=== PATIENT | female | born 1945 | race Caucasian/White ===

== ENCOUNTER 2021-05-29 06:36 | Day surgery (SDC) | payer MEDICARE ==
[2021-05-29] MEDS ORDERED: Sodium Chloride 0.9% 10 ML Syringe FLUSH PRN (07:00)
== END 2021-05-29 08:39 | disposition home or self-care (01) ==
LOC: JP.SDS 06:36
PROVIDERS: ATTEND Ophthalmology
DX: H25.12 Age-related nuclear cataract, left eye (principal)

== ENCOUNTER 2021-07-03 07:19 | Day surgery (SDC) | payer MEDICARE ==
[2021-07-03] MEDS: Sodium Chloride 0.9% 10 ML Syringe FLUSH PRN (07:59)
[2021-07-03] MEDS ORDERED: fentaNYL 100 MCG/2 ML SDV ONE (08:17)
== END 2021-07-03 09:30 | disposition home or self-care (01) ==
LOC: JP.SDS 07:19
PROVIDERS: ATTEND Ophthalmology
DX: E11.36 Type 2 diabetes mellitus with diabetic cataract (principal); I48.91 Unspecified atrial fibrillation; H25.11 Age-related nuclear cataract, right eye; I10 Essential (primary) hypertension; E78.5 Hyperlipidemia, unspecified
CPT/HCPCS: J3010; J3490; V2632

== ENCOUNTER 2022-09-15 07:51 | Emergency (ER) | payer MEDICARE | END 2022-09-15 10:22 | disposition home or self-care (01) | LOC: JP.ED 07:51 | DX: S93.402A Sprain of unspecified ligament of left ankle, initial encounter (principal); S80.02XA Contusion of left knee, initial encounter; E78.00 Pure hypercholesterolemia, unspecified; I10 Essential (primary) hypertension; E11.9 Type 2 diabetes mellitus without complications; E03.9 Hypothyroidism, unspecified; E66.9 Obesity, unspecified; Z68.25 Body mass index [BMI] 25.0-25.9, adult; Z88.0 Allergy status to penicillin; Z88.5 Allergy status to narcotic agent; Z88.8 Allergy status to other drugs, medicaments and biological substances; Z79.899 Other long term (current) drug therapy; Z79.01 Long term (current) use of anticoagulants; W18.30XA Fall on same level, unspecified, initial encounter | CPT/HCPCS: 73502-26-LT; 73502-LT; 73562-26-LT; 73562-LT; 73610-26-LT; 73610-LT; 99284 ==

== ENCOUNTER 2022-09-28 12:32 | Emergency (ER) | payer MEDICARE ==
[2022-09-28 13:45] LABS: BASOPHILS ABSOLUTE AUTO 0.04 K/uL (0.00-0.10); BASOPHILS PERCENT AUTO 0.5 % (0.1-1.3); EOSINOPHILS ABSOLUTE AUTO 0.15 K/uL (0.00-0.40); EOSINOPHILS PERCENT AUTO 1.8 % (0.0-5.4); HEMATOCRIT 37.7 % (34.3-46.0); HEMOGLOBIN 12.2 g/dL (11.2-15.5); IMMATURE GRAN ABSOLUTE AUTO 0.06 K/uL (0.00-0.23); IMMATURE GRAN PERCENT AUTO 0.7 % (0.0-0.7); LYMPHOCYTES PERCENT AUTO 14.7 % (11.4-47.7); MEAN CORPUSCULAR HEMOGLOBIN 27.3 pg (31.6-35.5); MEAN CORPUSCULAR HGB CONC 32.4 g/dL (31.6-35.5); MEAN CORPUSCULAR VOLUME 84.3 fL (81.4-99.0); MONOCYTES ABSOLUTE AUTO 0.63 K/uL (0.20-0.90); MONOCYTES PERCENT AUTO 7.7 % (3.3-12.6); NEUTROPHILS ABSOLUTE AUTO 6.07 K/uL (1.0-7.6); NEUTROPHILS PERCENT AUTO 74.6 % (40.0-78.1); PLATELET COUNT,PLT 315 K/uL (130-375); RED BLOOD CELL COUNT 4.47 M/uL (3.77-5.24); WHITE BLOOD CELL COUNT,WBC 8.2 K/uL (3.2-11.0)
[2022-09-28 14:07] LABS: A/G RATIO 0.7 (1.2-2.2); ALANINE AMINOTRANSFERASE,ALT 24 U/L (12-78); ALBUMIN 2.4 g/dL (3.4-5.0); ALKALINE PHOSPHATASE 78 U/L (46-116); ASPARTATE AMNIOTRANSFERASE,AST 15 U/L (15-37); BILIRUBIN TOTAL 0.4 mg/dL (0.2-1.0); BLOOD UREA NITROGEN,BUN 33 mg/dL (7-18); CALCIUM 8.9 mg/dL (8.5-10.1); CARBON DIOXIDE,CO2 27 mmol/L (21-32); CHLORIDE,CL 105 mmol/L (100-108); CREATININE 1.5 mg/dL (0.6-1.0); EST CRCL DRUG DOSING (CG) 29.87 mL/min; ESTIMATED GFR 36 mL/min (>60); GLUCOSE RANDOM 152 mg/dL (74-106); POTASSIUM,K 3.9 mmol/L (3.6-5.2); SODIUM,NA 140 mmol/L (140-148)
[2022-09-28 15:39] LABS: APPEARANCE,URINE CLEAR (CLEAR); BILIRUBIN,URINE NEGATIVE (NEGATIVE); COLOR,URINE YELLOW (YELLOW); GLUCOSE,URINE NEGATIVE (NEGATIVE); KETONES,URINE NEGATIVE (NEGATIVE); LEUKOCYTE ESTERASE,URINE NEGATIVE (NEGATIVE); NITRITE,URINE POSITIVE (NEGATIVE); OCCULT BLOOD,URINE TRACE-INTACT (NEGATIVE); PROTEIN,URINE NEGATIVE (NEGATIVE)
[2022-09-28 16:05] LABS: EPITHELIAL CELLS,URINE NOT SEEN; RBC,URINE 0-5 (0-5); WBC,URINE 0-5 (0-5)
[2022-09-28 16:06] LABS: AMORPHOUS SEDIMENT,URINE NOT SEEN; BACTERIA,URINE MANY; MUCUS,URINE NOT SEEN
[2022-09-28] MEDS ORDERED: Ciprofloxacin 500 MG Tab PO ONE (16:33)
== END 2022-09-28 18:35 | disposition home or self-care (01) ==
LOC: JP.ED 12:32
DX: N30.01 Acute cystitis with hematuria (principal); E78.00 Pure hypercholesterolemia, unspecified; I12.9 Hypertensive chronic kidney disease with stage 1 through stage 4 chronic kidney disease, or unspecified chronic kidney disease; E11.22 Type 2 diabetes mellitus with diabetic chronic kidney disease; N18.9 Chronic kidney disease, unspecified; E03.9 Hypothyroidism, unspecified; E66.9 Obesity, unspecified; Z68.29 Body mass index [BMI] 29.0-29.9, adult; Z88.0 Allergy status to penicillin; Z88.5 Allergy status to narcotic agent; Z88.8 Allergy status to other drugs, medicaments and biological substances; Z79.899 Other long term (current) drug therapy
CPT/HCPCS: 36415; 73562; 80053; 81001; 85025; 99285; A9270; 99283

== ENCOUNTER 2022-12-09 10:59 | Emergency (ER) | payer MEDICARE ==
[2022-12-09 12:03] LABS: APPEARANCE,URINE CLEAR (CLEAR); BILIRUBIN,URINE NEGATIVE (NEGATIVE); COLOR,URINE YELLOW (YELLOW); GLUCOSE,URINE NEGATIVE (NEGATIVE); KETONES,URINE NEGATIVE (NEGATIVE); LEUKOCYTE ESTERASE,URINE NEGATIVE (NEGATIVE); NITRITE,URINE NEGATIVE (NEGATIVE); OCCULT BLOOD,URINE NEGATIVE (NEGATIVE); PROTEIN,URINE NEGATIVE (NEGATIVE); UROBILINOGEN,URINE 0.2 EU/dL (0.2-1.0)
[2022-12-09 12:29] LABS: BACTERIA,URINE NOT SEEN; EPITHELIAL CELLS,URINE RARE; RBC,URINE NOT SEEN (0-5); WBC,URINE 0-5 (0-5)
[2022-12-09 12:30] LABS: AMORPHOUS SEDIMENT,URINE NOT SEEN; MUCUS,URINE FEW
== END 2022-12-09 13:45 | disposition home or self-care (01) ==
LOC: JP.ED 10:59
DX: R53.1 Weakness (principal); E03.9 Hypothyroidism, unspecified; E66.9 Obesity, unspecified; E11.9 Type 2 diabetes mellitus without complications; I48.91 Unspecified atrial fibrillation; E78.00 Pure hypercholesterolemia, unspecified; I10 Essential (primary) hypertension; Z79.899 Other long term (current) drug therapy; Z79.01 Long term (current) use of anticoagulants; Z88.0 Allergy status to penicillin; Z88.5 Allergy status to narcotic agent; Z88.6 Allergy status to analgesic agent
CPT/HCPCS: 81001; 99285

== ENCOUNTER 2022-12-20 13:05 | Inpatient (IN) | payer MEDICARE ==
[2022-12-20 13:35] LABS: APPEARANCE,URINE CLOUDY (CLEAR); BILIRUBIN,URINE NEGATIVE (NEGATIVE); COLOR,URINE YELLOW (YELLOW); GLUCOSE,URINE NEGATIVE (NEGATIVE); KETONES,URINE NEGATIVE (NEGATIVE); LEUKOCYTE ESTERASE,URINE MODERATE (NEGATIVE); NITRITE,URINE POSITIVE (NEGATIVE); OCCULT BLOOD,URINE NEGATIVE (NEGATIVE); PROTEIN,URINE NEGATIVE (NEGATIVE); UROBILINOGEN,URINE 0.2 EU/dL (0.2-1.0)
[2022-12-20 13:41] LABS: RBC,URINE 0-5 (0-5)
[2022-12-20 13:42] LABS: AMORPHOUS SEDIMENT,URINE NOT SEEN; BACTERIA,URINE MANY; EPITHELIAL CELLS,URINE FEW; MUCUS,URINE NOT SEEN
[2022-12-20 13:44] LABS: BASOPHILS PERCENT AUTO 0.2 % (0.1-1.3); HEMATOCRIT 42.3 % (34.3-46.0); IMMATURE GRAN ABSOLUTE AUTO 0.42 K/uL (0.00-0.23); IMMATURE GRAN PERCENT AUTO 4.4 % (0.0-0.7); LYMPHOCYTES ABSOLUTE AUTO 1.14 K/uL (0.8-3.3); LYMPHOCYTES PERCENT AUTO 11.9 % (11.4-47.7); MEAN CORPUSCULAR HEMOGLOBIN 27.5 pg (31.6-35.5); MEAN CORPUSCULAR HGB CONC 33.1 g/dL (31.6-35.5); MEAN CORPUSCULAR VOLUME 83.1 fL (81.4-99.0); MONOCYTES ABSOLUTE AUTO 0.46 K/uL (0.20-0.90); MONOCYTES PERCENT AUTO 4.8 % (3.3-12.6); NEUTROPHILS ABSOLUTE AUTO 7.56 K/uL (1.0-7.6); NEUTROPHILS PERCENT AUTO 78.7 % (40.0-78.1); PLATELET COUNT,PLT 265 K/uL (130-375); RED BLOOD CELL COUNT 5.09 M/uL (3.77-5.24); WHITE BLOOD CELL COUNT,WBC 9.6 K/uL (3.2-11.0)
[2022-12-20 13:45] LABS: BASOPHILS ABSOLUTE AUTO 0.02 K/uL (0.00-0.10)
[2022-12-20] MEDS ORDERED: cefTRIAXone 1 GM in Sodium Chloride 0.9% 50 ML IV ONE (13:50)
[2022-12-20 14:03] LABS: C-REACTIVE PROTEIN 0.05 mg/dL (0.0-0.3); CALCIUM 8.5 mg/dL (8.5-10.1); CREATININE 1.2 mg/dL (0.6-1.0); EST CRCL DRUG DOSING (CG) 35.89 mL/min; POTASSIUM,K 3.6 mmol/L (3.6-5.2)
[2022-12-20 14:06] LABS: ANION GAP 11.6 mmol/L (5.0-14.0)
[2022-12-20] MEDS ORDERED: Polyethylene Glycol 3350 Powder 17 GM Packet PO PRN (17:30)
[2022-12-20] MEDS ORDERED: 50% Dextrose in Water 50 ML Syringe IV PRN (17:30)
[2022-12-20] MEDS ORDERED: Sodium Chloride 0.9% 10 ML Syringe FLUSH PRN (17:30)
[2022-12-20] MEDS ORDERED: Haloperidol 1 MG Tab PO PRN (17:30)
[2022-12-20] MEDS ORDERED: Acetaminophen 325 MG Tab PO PRN (17:30)
[2022-12-20] MEDS ORDERED: Ondansetron 4 MG/2 ML SDV IV PRN (17:30)
[2022-12-20] MEDS ORDERED: Glucose Gel 15 GM in 37.5 GM Tube PO PRN (17:30)
[2022-12-20] MEDS: Sodium Chloride 0.9% 1,000 ML IV SCH (17:30)
[2022-12-20 17:40] LABS: INR 2.9; PROTHROMBIN TIME 27.8 sec (9.2-10.6)
[2022-12-20] MEDS: Insulin Lispro 100 Unit/ML 3 ML KwikPen SUBCUT SCH ×2 (18:02→21:26)
[2022-12-20] MEDS: Melatonin 3 MG Tab PO SCH (21:24)
[2022-12-20] MEDS: Rosuvastatin 10 MG Tab PO SCH (21:24)
[2022-12-20] MEDS: Memantine 5 MG Tab PO SCH (21:25)
[2022-12-21] MEDS: Sodium Chloride 0.9% 1,000 ML IV SCH (01:18)
[2022-12-21 05:53] LABS: HEMATOCRIT 38.3 % (34.3-46.0); HEMOGLOBIN 12.7 g/dL (11.2-15.5); MEAN CORPUSCULAR HEMOGLOBIN 27.7 pg (31.6-35.5); MEAN CORPUSCULAR HGB CONC 33.2 g/dL (31.6-35.5); MEAN CORPUSCULAR VOLUME 83.4 fL (81.4-99.0); RED BLOOD CELL COUNT 4.59 M/uL (3.77-5.24); WHITE BLOOD CELL COUNT,WBC 8.8 K/uL (3.2-11.0)
[2022-12-21 06:07] LABS: INR 3.4; PROTHROMBIN TIME 32.2 sec (9.2-10.6)
[2022-12-21 06:09] LABS: ANION GAP 9.4 mmol/L (5.0-14.0); CALCIUM 7.9 mg/dL (8.5-10.1); EST CRCL DRUG DOSING (CG) 42.32 mL/min; MAGNESIUM 2.2 mg/dL (1.8-2.4); POTASSIUM,K 3.4 mmol/L (3.6-5.2)
[2022-12-21] MEDS: Insulin Lispro 100 Unit/ML 3 ML KwikPen SUBCUT SCH ×4 (08:03→21:06)
[2022-12-21] MEDS: Potassium Chloride 10 MEQ Cap.ER PO SCH (09:55)
[2022-12-21] MEDS: Amiodarone 200 MG Tab PO SCH (09:55)
[2022-12-21] MEDS: Sertraline 25 MG Tab PO SCH (09:55)
[2022-12-21] MEDS: Dexamethasone 2 MG Tab PO SCH (09:55)
[2022-12-21] MEDS: Furosemide 20 MG Tab PO SCH (09:55)
[2022-12-21] MEDS: Memantine 5 MG Tab PO SCH ×2 (09:55→20:29)
[2022-12-21] MEDS: Sennosides 8.6 MG Tab PO SCH (09:55)
[2022-12-21] MEDS: Levothyroxine 50 MCG Tab PO SCH (09:55)
[2022-12-21] MEDS: Midodrine 5 MG Tab PO SCH (11:00)
[2022-12-21] MEDS ORDERED: Potassium Chloride 20 MEQ Tab.ER PO ONE (11:31)
[2022-12-21] MEDS ORDERED: cefTRIAXone 1 GM in Sodium Chloride 0.9% 50 ML IV SCH (15:00)
[2022-12-21] MEDS: Melatonin 3 MG Tab PO SCH (20:29)
[2022-12-21] MEDS: Rosuvastatin 10 MG Tab PO SCH (20:29)
[2022-12-22 06:04] LABS: CALCIUM 8.2 mg/dL (8.5-10.1); CREATININE 1.1 mg/dL (0.6-1.0); EST CRCL DRUG DOSING (CG) 38.48 mL/min; POTASSIUM,K 3.7 mmol/L (3.6-5.2)
[2022-12-22 06:05] LABS: ANION GAP 12.7 mmol/L (5.0-14.0)
[2022-12-22 06:07] LABS: PROTHROMBIN TIME 28.7 sec (9.2-10.6)
[2022-12-22] MEDS: Levothyroxine 50 MCG Tab PO SCH (07:29)
[2022-12-22] MEDS: Insulin Lispro 100 Unit/ML 3 ML KwikPen SUBCUT SCH ×4 (08:24→21:00)
[2022-12-22] MEDS: Timolol Maleate 0.5% Ophth Soln 5 ML Bottle EYEBOTH SCH (08:25)
[2022-12-22] MEDS: Midodrine 5 MG Tab PO SCH (08:25)
[2022-12-22] MEDS: Furosemide 20 MG Tab PO SCH (08:25)
[2022-12-22] MEDS: Sertraline 25 MG Tab PO SCH (08:26)
[2022-12-22] MEDS: Sennosides 8.6 MG Tab PO SCH (08:26)
[2022-12-22] MEDS: Dexamethasone 2 MG Tab PO SCH (08:26)
[2022-12-22] MEDS: Amiodarone 200 MG Tab PO SCH (08:27)
[2022-12-22] MEDS: Memantine 5 MG Tab PO SCH ×2 (08:27→20:19)
[2022-12-22] MEDS: Potassium Chloride 10 MEQ Cap.ER PO SCH (08:27)
[2022-12-22] MEDS: Cephalexin 250 MG Cap PO SCH ×2 (09:44→20:19)
[2022-12-22] MEDS: Rosuvastatin 10 MG Tab PO SCH (20:19)
[2022-12-22] MEDS: Melatonin 3 MG Tab PO SCH (20:19)
[2022-12-23 04:37] LABS: INR 2.9; PROTHROMBIN TIME 27.8 sec (9.2-10.6)
[2022-12-23] MEDS: Levothyroxine 50 MCG Tab PO SCH (08:01)
[2022-12-23] MEDS: Amiodarone 200 MG Tab PO SCH (08:32)
[2022-12-23] MEDS: Potassium Chloride 10 MEQ Cap.ER PO SCH (08:32)
[2022-12-23] MEDS: Midodrine 5 MG Tab PO SCH (08:32)
[2022-12-23] MEDS: Cephalexin 250 MG Cap PO SCH ×2 (08:32→20:29)
[2022-12-23] MEDS: Sennosides 8.6 MG Tab PO SCH (08:32)
[2022-12-23] MEDS: Memantine 5 MG Tab PO SCH ×2 (08:32→20:29)
[2022-12-23] MEDS: Furosemide 20 MG Tab PO SCH (08:32)
[2022-12-23] MEDS: Sertraline 25 MG Tab PO SCH (08:32)
[2022-12-23] MEDS: Timolol Maleate 0.5% Ophth Soln 5 ML Bottle EYEBOTH SCH (08:32)
[2022-12-23] MEDS: Insulin Lispro 100 Unit/ML 3 ML KwikPen SUBCUT SCH ×4 (08:33→21:15)
[2022-12-23] MEDS: Rosuvastatin 10 MG Tab PO SCH (20:29)
[2022-12-23] MEDS: Melatonin 3 MG Tab PO SCH (20:29)
[2022-12-24 04:31] LABS: INR 2.8; PROTHROMBIN TIME 26.7 sec (9.2-10.6)
[2022-12-24] MEDS: Insulin Lispro 100 Unit/ML 3 ML KwikPen SUBCUT SCH ×2 (07:36→12:05)
[2022-12-24] MEDS: Levothyroxine 50 MCG Tab PO SCH (07:48)
[2022-12-24] MEDS: Cephalexin 250 MG Cap PO SCH (08:41)
[2022-12-24] MEDS: Potassium Chloride 10 MEQ Cap.ER PO SCH (08:41)
[2022-12-24] MEDS: Memantine 5 MG Tab PO SCH (08:42)
[2022-12-24] MEDS: Timolol Maleate 0.5% Ophth Soln 5 ML Bottle EYEBOTH SCH (08:42)
[2022-12-24] MEDS: Sertraline 25 MG Tab PO SCH (08:42)
[2022-12-24] MEDS: Furosemide 20 MG Tab PO SCH (08:42)
[2022-12-24] MEDS: Amiodarone 200 MG Tab PO SCH (08:42)
[2022-12-24] MEDS: Midodrine 5 MG Tab PO SCH (08:43)
[2022-12-24] MEDS: Sennosides 8.6 MG Tab PO SCH (08:43)
== END 2022-12-24 13:35 | DRG 690 ==
LOC: JP.ED 13:05 → JP.MS 16:06
PROVIDERS: ADMIT Hospitalist; ATTEND Hospitalist
DX: N39.0 Urinary tract infection, site not specified (principal); R53.1 Weakness; N30.00 Acute cystitis without hematuria; R29.6 Repeated falls; I48.91 Unspecified atrial fibrillation; E11.9 Type 2 diabetes mellitus without complications; I10 Essential (primary) hypertension; E03.9 Hypothyroidism, unspecified; I12.9 Hypertensive chronic kidney disease with stage 1 through stage 4 chronic kidney disease, or unspecified chronic kidney disease; N18.31 Chronic kidney disease, stage 3a; Z79.899 Other long term (current) drug therapy; W01.0XXA Fall on same level from slipping, tripping and stumbling without subsequent striking against object, initial encounter; F03.90 Unspecified dementia, unspecified severity, without behavioral disturbance, psychotic disturbance, mood disturbance, and anxiety; E78.00 Pure hypercholesterolemia, unspecified; I95.1 Orthostatic hypotension; Z66 Do not resuscitate; B96.20 Unspecified Escherichia coli [E. coli] as the cause of diseases classified elsewhere; E11.22 Type 2 diabetes mellitus with diabetic chronic kidney disease; Z79.01 Long term (current) use of anticoagulants; Z79.4 Long term (current) use of insulin; Z88.5 Allergy status to narcotic agent; Z88.8 Allergy status to other drugs, medicaments and biological substances; Z88.0 Allergy status to penicillin; Z86.16 Personal history of COVID-19; Z98.42 Cataract extraction status, left eye; Z98.41 Cataract extraction status, right eye; Z90.49 Acquired absence of other specified parts of digestive tract; Z90.710 Acquired absence of both cervix and uterus
CPT/HCPCS: 36415; 71045 ×2; 80048; 81001; 83605; 83735; 84145; 85025; 85610; 86140; 87086; 87186; 96365; 99284; 99285; J0696; J3490; 82947; 85027; 87088; 97110-GP; 97161-GP; 97165-GO; 97530-GP; A9270-GY; J1815; J7030; J8540

== ENCOUNTER 2024-03-08 12:39 | Emergency (ER) | payer BC, MEDICARE ==
[2024-03-08 12:58] LABS: BASOPHILS ABSOLUTE AUTO 0.03 K/uL (0.00-0.10); BASOPHILS PERCENT AUTO 0.6 % (0.1-1.3); EOSINOPHILS ABSOLUTE AUTO 0.02 K/uL (0.00-0.40); EOSINOPHILS PERCENT AUTO 0.4 % (0.0-5.4); HEMATOCRIT 41.3 % (34.3-46.0); HEMOGLOBIN 13.8 g/dL (11.2-15.5); IMMATURE GRAN ABSOLUTE AUTO 0.02 K/uL (0.00-0.23); IMMATURE GRAN PERCENT AUTO 0.4 % (0.0-0.7); LYMPHOCYTES ABSOLUTE AUTO 1.38 K/uL (0.8-3.3); LYMPHOCYTES PERCENT AUTO 26.5 % (11.4-47.7); MEAN CORPUSCULAR HEMOGLOBIN 28.9 pg (31.6-35.5); MEAN CORPUSCULAR HGB CONC 33.4 g/dL (31.6-35.5); MEAN CORPUSCULAR VOLUME 86.6 fL (81.4-99.0); MONOCYTES ABSOLUTE AUTO 0.31 K/uL (0.20-0.90); NEUTROPHILS ABSOLUTE AUTO 3.44 K/uL (1.0-7.6); NEUTROPHILS PERCENT AUTO 66.1 % (40.0-78.1); PLATELET COUNT,PLT 224 K/uL (130-375); RED BLOOD CELL COUNT 4.77 M/uL (3.77-5.24); WHITE BLOOD CELL COUNT,WBC 5.2 K/uL (3.2-11.0)
[2024-03-08 13:16] LABS: ANION GAP 9.6 mmol/L (5.0-14.0); CALCIUM 9.1 mg/dL (8.5-10.1); CREATININE 1.3 mg/dL (0.6-1.0); EST CRCL DRUG DOSING (CG) 34.68 mL/min; POTASSIUM,K 3.6 mmol/L (3.6-5.2)
[2024-03-08 13:17] LABS: INR 1.7; PROTHROMBIN TIME 16.6 sec (9.2-10.6)
[2024-03-08] MEDS: Sodium Chloride 0.9% 1,000 ML IV ONE (13:32)
[2024-03-08 14:41] LABS: APPEARANCE,URINE CLEAR (CLEAR); BILIRUBIN,URINE NEGATIVE (NEGATIVE); COLOR,URINE YELLOW (YELLOW); GLUCOSE,URINE NEGATIVE (NEGATIVE); KETONES,URINE NEGATIVE (NEGATIVE); LEUKOCYTE ESTERASE,URINE TRACE (NEGATIVE); NITRITE,URINE NEGATIVE (NEGATIVE); OCCULT BLOOD,URINE NEGATIVE (NEGATIVE); PROTEIN,URINE NEGATIVE (NEGATIVE); UROBILINOGEN,URINE 0.2 EU/dL (0.2-1.0)
[2024-03-08 14:54] LABS: AMORPHOUS SEDIMENT,URINE NOT SEEN; BACTERIA,URINE MANY; EPITHELIAL CELLS,URINE RARE; MUCUS,URINE RARE; RBC,URINE 0-5 (0-5)
== END 2024-03-08 15:34 ==
LOC: JP.ED 12:39
DX: N30.01 Acute cystitis with hematuria (principal); I10 Essential (primary) hypertension; E78.00 Pure hypercholesterolemia, unspecified; I48.91 Unspecified atrial fibrillation; E11.9 Type 2 diabetes mellitus without complications; E03.9 Hypothyroidism, unspecified; E66.9 Obesity, unspecified; Z86.16 Personal history of COVID-19; Z90.49 Acquired absence of other specified parts of digestive tract; Z90.710 Acquired absence of both cervix and uterus; Z79.890 Hormone replacement therapy; Z79.899 Other long term (current) drug therapy; Z79.01 Long term (current) use of anticoagulants; Z88.0 Allergy status to penicillin; Z88.1 Allergy status to other antibiotic agents; Z88.5 Allergy status to narcotic agent; Z68.39 Body mass index [BMI] 39.0-39.9, adult
CPT/HCPCS: 36415; 80048; 81001; 83605; 84484; 85025; 85610; 87086; 87088; 87186; 93005; 96360; 99284; J7030; 93010

== ENCOUNTER 2024-03-26 12:37 | Emergency (ER) | payer MEDICARE ==
[2024-03-26 12:59] LABS: BASOPHILS ABSOLUTE AUTO 0.09 K/uL (0.00-0.10); BASOPHILS PERCENT AUTO 2.1 % (0.1-1.3); EOSINOPHILS ABSOLUTE AUTO 0.06 K/uL (0.00-0.40); EOSINOPHILS PERCENT AUTO 1.4 % (0.0-5.4); HEMATOCRIT 43.3 % (34.3-46.0); HEMOGLOBIN 14.2 g/dL (11.2-15.5); IMMATURE GRAN ABSOLUTE AUTO 0.03 K/uL (0.00-0.23); IMMATURE GRAN PERCENT AUTO 0.7 % (0.0-0.7); LYMPHOCYTES ABSOLUTE AUTO 1.49 K/uL (0.8-3.3); LYMPHOCYTES PERCENT AUTO 35.5 % (11.4-47.7); MEAN CORPUSCULAR HEMOGLOBIN 28.2 pg (31.6-35.5); MEAN CORPUSCULAR HGB CONC 32.8 g/dL (31.6-35.5); MEAN CORPUSCULAR VOLUME 86.1 fL (81.4-99.0); MONOCYTES ABSOLUTE AUTO 0.29 K/uL (0.20-0.90); MONOCYTES PERCENT AUTO 6.9 % (3.3-12.6); NEUTROPHILS ABSOLUTE AUTO 2.24 K/uL (1.0-7.6); NEUTROPHILS PERCENT AUTO 53.4 % (40.0-78.1); PLATELET COUNT,PLT 192 K/uL (130-375); RED BLOOD CELL COUNT 5.03 M/uL (3.77-5.24); WHITE BLOOD CELL COUNT,WBC 4.2 K/uL (3.2-11.0)
[2024-03-26] MEDS: Sodium Chloride 0.9% 500 ML IV ONE (13:20)
[2024-03-26 13:21] LABS: ALKALINE PHOSPHATASE 75 U/L (46-116); BLOOD UREA NITROGEN,BUN 17 mg/dL (7-18); CALCIUM 9.1 mg/dL (8.5-10.1); CHLORIDE,CL 106 mmol/L (100-108); EST CRCL DRUG DOSING (CG) 34.68 mL/min; SODIUM,NA 141 mmol/L (140-148)
[2024-03-26 13:41] LABS: APPEARANCE,URINE CLEAR (CLEAR); BILIRUBIN,URINE NEGATIVE (NEGATIVE); COLOR,URINE YELLOW (YELLOW); GLUCOSE,URINE NEGATIVE (NEGATIVE); KETONES,URINE NEGATIVE (NEGATIVE); LEUKOCYTE ESTERASE,URINE NEGATIVE (NEGATIVE); NITRITE,URINE NEGATIVE (NEGATIVE); OCCULT BLOOD,URINE NEGATIVE (NEGATIVE); PH,URINE 5.5 (5.0-8.0); PROTEIN,URINE NEGATIVE (NEGATIVE); UROBILINOGEN,URINE 0.2 EU/dL (0.2-1.0)
[2024-03-26 13:42] LABS: AMORPHOUS SEDIMENT,URINE NOT SEEN; BACTERIA,URINE NOT SEEN; EPITHELIAL CELLS,URINE NOT SEEN; MUCUS,URINE MODERATE; RBC,URINE 0-5 (0-5); WBC,URINE 0-5 (0-5)
[2024-03-26 13:42] LABS: INR 1.7; PROTHROMBIN TIME 17.2 sec (9.2-10.6)
[2024-03-26 13:46] LABS: A/G RATIO 0.9 (1.2-2.2); ALANINE AMINOTRANSFERASE,ALT 52 U/L (12-78); ANION GAP 7.5 mmol/L (5.0-14.0); ASPARTATE AMNIOTRANSFERASE,AST 27 U/L (15-37); BILIRUBIN TOTAL 0.5 mg/dL (0.2-1.0); CARBON DIOXIDE,CO2 28 mmol/L (21-32); CREATININE 1.3 mg/dL (0.6-1.0); ESTIMATED GFR 42 mL/min (>60); GLUCOSE RANDOM 127 mg/dL (74-106); POTASSIUM,K 3.9 mmol/L (3.6-5.2); PROTEIN TOTAL,TP 6.2 g/dL (6.4-8.2)
== END 2024-03-26 14:46 | disposition home or self-care (01) ==
LOC: JP.ED 12:37
DX: I95.9 Hypotension, unspecified (principal); I48.20 Chronic atrial fibrillation, unspecified; E86.0 Dehydration; R79.1 Abnormal coagulation profile; R93.0 Abnormal findings on diagnostic imaging of skull and head, not elsewhere classified; I25.2 Old myocardial infarction; I10 Essential (primary) hypertension; E78.00 Pure hypercholesterolemia, unspecified; E11.9 Type 2 diabetes mellitus without complications; E03.9 Hypothyroidism, unspecified; E66.9 Obesity, unspecified; Z68.35 Body mass index [BMI] 35.0-35.9, adult; Z86.16 Personal history of COVID-19; Z90.49 Acquired absence of other specified parts of digestive tract; Z90.710 Acquired absence of both cervix and uterus; Z96.659 Presence of unspecified artificial knee joint; Z88.0 Allergy status to penicillin; Z88.5 Allergy status to narcotic agent; Z88.8 Allergy status to other drugs, medicaments and biological substances; Z79.01 Long term (current) use of anticoagulants; Z79.84 Long term (current) use of oral hypoglycemic drugs; Z79.890 Hormone replacement therapy; Z79.899 Other long term (current) drug therapy
CPT/HCPCS: 36415; 70450; 71045; 71045-26; 80053; 81001; 83605; 85025; 85610; 87428-QW; 93005; 93010; 96360; 99284; 99285-25; J7040

== ENCOUNTER 2024-04-03 20:43 | Emergency (ER) | payer MEDICARE ==
[2024-04-03] MEDS: Acetaminophen 500 MG Tab PO ONE (21:06)
[2024-04-03 21:19] LABS: INR 1.6; PROTHROMBIN TIME 16.1 sec (9.2-10.6)
== END 2024-04-03 23:00 ==
LOC: JP.ED 20:43
DX: S33.5XXA Sprain of ligaments of lumbar spine, initial encounter (principal); S50.12XA Contusion of left forearm, initial encounter; S09.90XA Unspecified injury of head, initial encounter; I10 Essential (primary) hypertension; I25.2 Old myocardial infarction; I48.91 Unspecified atrial fibrillation; E11.9 Type 2 diabetes mellitus without complications; E03.9 Hypothyroidism, unspecified; E66.9 Obesity, unspecified; Z86.16 Personal history of COVID-19; Z90.710 Acquired absence of both cervix and uterus; Z79.899 Other long term (current) drug therapy; Z79.01 Long term (current) use of anticoagulants; Z79.84 Long term (current) use of oral hypoglycemic drugs; Z88.0 Allergy status to penicillin; Z88.1 Allergy status to other antibiotic agents; Z68.35 Body mass index [BMI] 35.0-35.9, adult; Z88.5 Allergy status to narcotic agent; W18.2XXA Fall in (into) shower or empty bathtub, initial encounter; Y92.121 Bathroom in nursing home as the place of occurrence of the external cause
CPT/HCPCS: 36415; 70450; 72100; 85610; 99284; A9270